=== PATIENT | female | born 1995 | race Caucasian/White ===

== ENCOUNTER 2019-06-06 13:20 | Emergency (ER) | payer OTHER ==
[~2019-06-06] VITALS: Ht 154.9 cm; Wt 66.0 kg
[2019-06-06 13:35] VITALS: BP 120/62; PULSE 85; TEMP 98.7
[2019-06-06 14:12] LABS: STREP SCREEN NEGATIVE
== END 2019-06-06 15:45 | disposition home or self-care (01) ==
LOC: COL.ER 13:20
PROVIDERS: Family Medicine
DX: J02.9 Acute pharyngitis, unspecified (principal)